=== PATIENT | female | born 1965 | race Caucasian/White ===

== ENCOUNTER 2016-08-02 06:38 | Day surgery (SDC) | payer MEDICARE, MEDICAID ==
[2016-08-02 07:03] VITALS: BMI 29.2
[2016-08-02 07:18] VITALS: TEMP 97.3
[2016-08-02] MEDS ORDERED: Propofol 10 mg/ml Inj (20 ML) ONE (08:00)
[2016-08-02 09:09] VITALS: O2SAT 98
[2016-08-02 09:13] VITALS: PULSE 58; RESP 12
[2016-08-02 09:30] VITALS: BP 120/54
== END 2016-08-02 09:26 | disposition home or self-care (01) ==
LOC: C.ENDO 06:38
PROVIDERS: ATTEND Internal Medicine Gastroenterology
DX: D12.2 Benign neoplasm of ascending colon (principal); D12.5 Benign neoplasm of sigmoid colon; K29.60 Other gastritis without bleeding; K29.80 Duodenitis without bleeding; K62.1 Rectal polyp; K94.03 Colostomy malfunction; K64.8 Other hemorrhoids
CPT/HCPCS: 43239; 45385; 88305; 88313; 88342; J2704